=== PATIENT | male | born 1940 | race Caucasian/White ===

== ENCOUNTER 2024-04-13 00:27 | Emergency (ER) | payer OTHER ==
[~2024-04-13] VITALS: Ht 177.8 cm; Wt 66.0 kg
[2024-04-13 00:49] VITALS: TEMP 96.4; O2SAT 97
[2024-04-13] MEDS: SODIUM CHLORIDE 0.9% 1,000 ML IV ONE (01:31)
[2024-04-13 01:38] LABS: CLARITY URINE CLOUDY (CLEAR); COLOR URINE YELLOW (YELLOW); GLUCOSE URINE NEGATIVE (NEGATIVE); KETONES URINE NEGATIVE (NEGATIVE); LEUKOCYTE ESTERASE URINE 3+ (NEGATIVE); NITRITE URINE NEGATIVE (NEGATIVE); OCCULT BLOOD URINE TRACE (NEGATIVE); PROTEIN URINE TRACE (NEGATIVE); SPECIFIC GRAVITY URINE 1.014 (1.005-1.030)
[2024-04-13 01:40] LABS: BASOPHILS % 0.7 % (0.0-2.0); EOSINOPHILS % 3.1 % (0.0-5.0); HEMATOCRIT. 35.4 % (42.0-52.0); HEMOGLOBIN. 11.7 g/dL (14.0-18.0); LYMPHOCYTES % 19.1 % (20.0-50.0); MEAN CORPUSCULAR HEMOGLOBIN 30.7 pg (28.0-32.0); MEAN CORPUSCULAR VOLUME 92.9 fL (80.0-94.0); MEAN PLATELET VOLUME 7.2 fl (7.4-10.4); MONOCYTES % 8.1 % (2.0-8.0); PLATELET 282 x1000/uL (130-400); RED BLOOD CELL COUNT 3.81 mill/uL (4.7-6.1); RED CELL DISTRIBUTION WIDTH 15.2 % (11.6-14.6); WHITE BLOOD COUNT 7.1 x1000/uL (4.5-11.0)
[2024-04-13 01:50] LABS: CARBON DIOXIDE 32 mEq/L (21-32); CHLORIDE 100 mEq/L (98-107); POTASSIUM 4.1 mEq/L (3.5-5.1); SODIUM 136 mEq/L (136-145)
[2024-04-13 01:51] LABS: CALCIUM 8.9 mg/dL (8.7-10.4)
[2024-04-13 01:54] LABS: BACTERIA URINE 1+; RBC URINE 0-2 /hpf (0-2); SQUAMOUS EPITHELIAL CELL URINE FEW /lpf (RARE/1+); WBC URINE TNTC /hpf (0-2)
[2024-04-13 01:55] LABS: CREATININE 0.6 mg/dL (0.6-1.3)
[2024-04-13 01:56] LABS: GLUCOSE 97 mg/dL (70-105); UREA NITROGEN BLOOD 17 mg/dL (9-23)
[2024-04-13 01:57] LABS: ALANINE AMINOTRANSFERASE 25 IU/L (10-49); ALBUMIN 3.5 g/dL (3.2-4.8); ASPARTATE AMINOTRANSFERASE 30 IU/L (<34)
[2024-04-13 01:58] LABS: BILIRUBIN TOTAL 0.2 mg/dL (0.1-1.0); PROTEIN TOTAL 6.7 g/dL (6.0-8.3)
[2024-04-13 01:59] LABS: BILIRUBIN DIRECT < 0.1 mg/dL (<=3.0)
[2024-04-13 02:37] LABS: PROTHROMBIN TIME 11.4 sec (9.6-11.0)
[2024-04-13] MEDS: CEFTRIAXONE 1GM/50ML 50 ML IV NR (03:00)
[2024-04-13 05:34] LABS: HEMATOCRIT 32.7 % (42.0-52.0); HEMOGLOBIN 10.9 g/dL (14.0-18.0); MEAN CORPUSCULAR HEMOGLOBIN 30.8 pg (28.0-32.0); MEAN CORPUSCULAR HGB CONC 33.3 g/dL (31.0-37.0); MEAN CORPUSCULAR VOLUME 92.4 fL (80.0-94.0); PLATELET 256 x1000/uL (130-400); RED BLOOD CELL COUNT 3.54 mill/uL (4.7-6.1); RED CELL DISTRIBUTION WIDTH 15.4 % (11.6-14.6)
[2024-04-13] MEDS: IOHEXOL-350 100 ML BOTTLE ONE (06:33)
[2024-04-13 07:21] VITALS: BP 143/79; PULSE 69; RESP 17; O2SAT 98
== END 2024-04-13 08:34 | disposition short-term general hospital (02) ==
LOC: ER 00:27
DX: M79.602 Pain in left arm (principal); I25.2 Old myocardial infarction; I10 Essential (primary) hypertension; E78.00 Pure hypercholesterolemia, unspecified
CPT/HCPCS: 99285; 74174; 96374; 96361; 80076; 80048; 81003; 83605; 83690; 85025; 85610; 86850; 86900; 86901; 87086; 36415; 85027; Q9967; J0696; J7030